=== PATIENT | female | born 1995 | race Caucasian/White ===

== ENCOUNTER 2016-07-22 14:08 | Emergency (ER) | payer OTHER ==
--- NOTE | ~2016-07-22 | CT2 ---
[facility] A Service of [facility] RADIOLOGY TEXT RESULTS PATIENT: JUVENTINO PEREZ LOCATION: SED : [birth year] UNIT #: [id number] AGE: [address]: Denver Parikh MD SEX: F ORDER DR: [id number] [address] [address] [id number] MR#: [id number] Acc #: [id number] NAME: JUVENTINO PEREZ : 1995 SEX: F STUDY DATE/TIME: 07/22/2016 16:19 UNIT: SED ROOM: STUDY DESCRIPTION: CT Abd and Pelv W Cont Attending Physician: Denver Parikh M.D. Ordering Physician: Denver Parikh M.D. Primary Care Physician: Primary Care Physician No MEDICAL IMAGING REPORT This report is preliminary unless electronic signature is present. EXAM CT scan of the abdomen and pelvis with contrast, 07/22/2016 HISTORY Left lower quadrant abdominal pain for [address] was performed through the abdomen and pelvis following intravenous contrast administration only, as per clinician request. This CT exam was performed with one or more of the following radiation dose reduction techniques: Automatic exposure control, adjustment of mA and/or kV according to patient size, and iterative reconstruction. FINDINGS ABDOMEN: The exam is limited by the lack of oral contrast. There is no prior exam for comparison. The liver, spleen, pancreas, adrenal glands and kidneys are normal. Minimal pericholecystic fluid is seen. If there is clinical concern for gallbladder pathology, consider correlation with gallbladder ultrasound. PELVIS FINDINGS: The gut, mesenteric and [place] structures are normal. Uterus is bicornuate. There is no free fluid in the abdomen or pelvis. The lung bases are normal. IMPRESSION 1. Minimal fluid surrounding the gallbladder. If there is clinical concern for gallbladder pathology, consider correlation with gallbladder ultrasound. No CT evidence of cholelithiasis. 2. Bicornuate uterus. [facility] A Service of [facility] RADIOLOGY TEXT RESULTS PATIENT: JUVENTINO PEREZ LOCATION: SED : [birth year] UNIT #: [id number] AGE: [address]: Denver Parikh MD SEX: F ORDER DR: Dictated by... Silas Kevin M.D. THIS IS AN ELECTRONICALLY VERIFIED REPORT Silas Kevin M.D. at 07/23/2016 10:49 AM KRT/psc TD: 07/22/2016 23:28 JOB #: [id number] MEDICAL IMAGING REPORT
[~2016-07-22 14:08] MED LIST: NO MEDICATIONS
[2016-07-22 14:41] LABS: BASOPHIL% 0.7 % (0-2.5); EOSINOPHIL# 0.2 X10e3 (0-0.7); EOSINOPHIL% 2.9 % (0.0-7.0); HEMATOCRIT 39.6 % (35.0-45.0); HEMOGLOBIN 13.7 gm/dL (12.0-16.0); LYMPHOCYTE% 34.9 % (17.0-45.0); MEAN CELL VOLUME 89.1 FL (83-96); MEAN CORPUSCULAR HEMOGLOBIN 30.7 PG (28-34); MEAN CORPUSCULAR HGB CONC 34.5 g/dL (30-36); MEAN PLATELET VOLUME 6.8 FL (6.5-11.5); MONOCYTE# 0.5 X10e3 (0-1.0); MONOCYTE% 8.7 % (3.0-12.0); NEUTROPHIL% 52.8 % (40-75); PLATELET COUNT 247 X10e3 (140-420); RED BLOOD COUNT 4.45 X10e (3.90-5.30); RED CELL DISTRIBUTION WIDTH 13.2 % (11.0-15.5); WHITE BLOOD COUNT 5.8 X10e3 (4.0-10.5)
[2016-07-22 14:44] LABS: DIFF IND NO
[2016-07-22 15:00] LABS: ALKALINE PHOSPHATASE 50 U/L (32-92); ALT (SGPT) 11 U/L (10-40); AST (SGOT) 17 U/L (10-42); BILIRUBIN, DIRECT 0.1 mg/dL (0.0-0.2); BILIRUBIN,INDIRECT 0.9 mg/dL (0.0-0.9); BLOOD UREA NITROGEN 14 mg/dL (9-23); CALCIUM SERUM 8.9 mg/dL (8.4-10.2); CARBON DIOXIDE 24 mmol/L (22-31); CHLORIDE 107 mmol/L (100-111); CREATININE SERUM 0.7 mg/dL (0.6-1.4); GLOM FILT RATE Estimated ABOVE60 mL/min (>60); GLUCOSE FASTING 93 mg/dL (70-110); POTASSIUM 3.8 mmol/L (3.5-5.1); PROTEIN TOTAL SERUM 6.8 g/dL (6.0-8.3); SODIUM 138 mmol/L (135-145)
[2016-07-22 15:11] LABS: URINE SOURCE CLEAN CATCH
[2016-07-22 15:13] LABS: URINE APPEARANCE CLEAR; URINE BILIRUBIN NEG (NEG); URINE BLOOD TRACE-INTACT (NEG); URINE COLOR YELLOW; URINE GLUCOSE NEG (NORM); URINE KETONE NEG (NEG); URINE LEUKOCYTE ESTERASE NEG (NEG); URINE NITRATE NEG (NEG); URINE PROTEIN 1+ (NEG); URINE SPECIFIC GRAVITY 1.025 (1.003-1.035); URINE UROBILINOGEN 0.2 MG/DL (NORM)
[2016-07-22 15:15] LABS: MICRO INDICATED? YES
[2016-07-22 15:22] LABS: CULTURE INDICATED? NO; URINE BACTERIA NEG (NEG); URINE MUCUS PRESENT; URINE SQUAMOUS EPITHELIAL CELL MANY /[HPF]
[2016-07-22 17:14] LABS: AMPHETAMINE NEG (NEG); BARBITURATES NEG (NEG); BENZODIAZEPINES NEG (NEG); COCAINE NEG (NEG); MARIJUANA POS (NEG); OPIATES NEG (NEG); TRICYCLIC ANTIDEPRESSANTS NEG (NEG); U METHADONE NEG (NEG)
== END 2016-07-22 17:09 | disposition home or self-care (01) ==
LOC: SED 14:08
PROVIDERS: Emergency Medicine
DX: Q51.3 Bicornate uterus (principal); F17.210 Nicotine dependence, cigarettes, uncomplicated; K31.84 Gastroparesis; Z88.1 Allergy status to other antibiotic agents
CPT/HCPCS: 36415; 74177; 80048; 80076; 80307; 81003; 84703; 85025; 96361; 96374; 96375; 99284; J1885; J2405; Q9967